=== PATIENT | female | born 1995 | race Caucasian/White ===

== ENCOUNTER → 2020-09-30 14:11 | Outpatient (BNVA) | payer BC, SELFPAY | PROVIDERS: PCP Nurse Practitioner Adult Health; Visit Provider Internal Medicine Gastroenterology ==

== ENCOUNTER 2020-11-23 10:17 | Outpatient (REF) | payer BC, SELFPAY ==
[2020-11-23 12:44] LABS: Alanine Aminotransferase 26 U/L (0-31); Albumin Level 4.4 g/dL (3.5-5.0); Alkaline Phosphatase 93 U/L (39-117); Aspartate Amino Transferase 17 U/L (5-31); Bilirubin Direct < 0.2 mg/dL (0.0-0.5); Bilirubin Total 0.3 mg/dL (0.0-1.0); Total Protein 6.9 g/dL (6.5-8.0)
== END 2020-11-23 10:18 | disposition home or self-care (01) ==
LOC: HO.LAB 10:17
PROVIDERS: Absent Provider Internal Medicine Gastroenterology; PCP Nurse Practitioner Adult Health; Visit Provider Surgery
DX: K80.20 Calculus of gallbladder without cholecystitis without obstruction (principal)
CPT/HCPCS: 36415; 80076

== ENCOUNTER 2021-01-18 10:18 | Outpatient (REF) | payer BC, SELFPAY ==
--- NOTE | ~2021-01-18 | US_ITS ---
EXAMINATION: US ABDOMEN LIMITED CLINICAL INFORMATION: Calculus of gallbladder without cholecystitis. COMPARISON: None TECHNIQUE: Real-time imaging of the right upper quadrant abdominal viscera. FINDINGS: PANCREAS: The head and the body of the pancreas is homogeneous in echotexture. The tail is not visualized. LIVER: Normal. The liver is normal in size. The liver contour is normal. Parenchymal echogenicity is normal. No focal hepatic lesion. There is no intrahepatic biliary duct dilatation seen. GALLBLADDER: The gallbladder is physiologically distended. Multiple impacted mobile gallstones are present. No evidence of gallbladder wall thickening or pericholecystic fluid. COMMON BILE DUCT: Normal in caliber measuring 0.2 cm in diameter. RIGHT KIDNEY: Normal. No hydronephrosis. No renal calculi or focal parenchymal lesions. The kidney measures 11.0 cm in maximum dimension. FREE FLUID: None. US/US abdomen limited IMPRESSION: Multiple impacted gallstones without wall thickening. Visualized liver, pancreas, CBD and right kidney are unremarkable.
== END 2021-01-18 10:19 | disposition home or self-care (01) ==
LOC: HO.US 10:18
PROVIDERS: PCP Nurse Practitioner Adult Health; Visit Provider Surgery
DX: K80.20 Calculus of gallbladder without cholecystitis without obstruction (principal)
CPT/HCPCS: 76705

== ENCOUNTER → 2021-01-25 10:04 | Outpatient (BNVA) | payer BC, SELFPAY | PROVIDERS: PCP Nurse Practitioner Adult Health; Referring Provider Nurse Practitioner Adult Health; Visit Provider Surgery ==

== ENCOUNTER 2022-10-24 10:00 | Outpatient (AMB) | payer BC, SELFPAY ==
--- NOTE | 2022-10-24 10:07 | MHC.OFFVIS ---
Intake Vital Signs 10/24/22 10:12 Weight 243 lb BP 110/66 Blood Pressure Location Rt brachial Position Sitting Pulse 70 Intake Visit Reasons: Discuss gallbladder surgery Intake Note: This patient presents for an assessment to discuss laparoscopic cholecystectomy. Patient c/o; last episode 3 weeks ago, denies nausea or vomiting, denies problems with bowel movements. 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 The pain occurs nearly monthly and she has made multiple visits to the emergency department because of the pain. The most recent episode occurred on 10/04/2022. She reports the pain lasted approximately 4 hours before resolving. She was evaluated at [facility]. Ultrasound confirmed gallstones within the gallbladder. She feels the pain is diet related and seems to increase with fatty food intake. She presents today to discuss cholecystectomy. [facility] Surgical History History of tooth extraction Family History Mother Alcohol abuse Breast CA Social History Household Members: Significant Other Household Members Other:: boyfriends Alcohol intake: never Patient Tobacco Use Status: Former Tobacco user Quit Date: 12/2016 Tobacco use type: Cigarette e-Cigarette/Vaping Use: Currently Using Substance Use Type: Marijuana Review of Systems Const All systems reviewed & are unremarkable except as noted in HPI and below GI Reports as per HPI Physical Exam Vital Signs: Last Vital Signs Pulse 70 10/24/22 10:12 BP 110/66 10/24/22 10:12 Const General: no acute distress and well developed Nutritional Appearance: well nourished Orientation/consciousness: patient oriented x3 Limitations: no limitations Neck Neck: Yes trachea midline, Yes supple and Yes no JVD Resp Effort & Inspection: normal respiratory effort, no audible wheezes, no cough and no tracheal deviation GI Inspection: Yes normal to inspection Palpation (GI): Soft to palpation, Tenderness to palpation present (GI) in the RUQ; Lazo's sign negative, no guarding, not rigid, hepatosplenomegaly present, no hepatomegaly and No Rebound tenderness present Auscultation: normal bowel sounds Rectal Exam - Female: deferred Abdomen image: 1. Area of tenderness deep palpation, no palpable mass, no rebound or guarding Skin General skin exam: no rashes or lesions noted Neuro General: patient oriented x3 Extrem General: Yes no clubbing, cyanosis or edema Assessment & Plan Assessment & Plan (1) Biliary colic: Code(s): K80.50 - Calculus of bile duct without cholangitis or cholecystitis without obstruction Plan 26-year-old female patient with recurring episodes of biliary colic with a known history of gallstones. She reports the episodes are occurring more frequently and becoming more severe. We discussed laparoscopic cholecystectomy as a possible option. After review of the procedure, risks, and alternatives, she consents to a laparoscopic or possible open cholecystectomy. Coding Level of Care Code Est Pt Level 4 (45534) Diagnoses Biliary colic K80.50
[2022-10-24 10:12] VITALS: BP 110/66; PULSE 70
== END 2022-10-24 10:28 | disposition home or self-care (01) ==
PROVIDERS: PCP Nurse Practitioner Adult Health; Visit Provider Surgery
DX: K80.50 Calculus of bile duct without cholangitis or cholecystitis without obstruction (principal)
CPT/HCPCS: 99213

== ENCOUNTER → 2022-10-24 10:00 | Outpatient (BNVA) | payer BC, SELFPAY | PROVIDERS: PCP Nurse Practitioner Adult Health; Visit Provider Surgery ==

== ENCOUNTER 2022-11-13 07:59 | Day surgery (SDC) | payer BC, SELFPAY ==
[2022-11-08 14:19] VITALS: BMI 35.9
--- NOTE | 2022-11-10 09:19 | HO.ANESPROP2 ---
HPI - Anesthesia Eval Consult details Narrative: 26yo F for Cholecystectomy Laparoscopic, poss open PMFSH Active Problems Active Problems: All Active Problems (Updated 11/08/22 @ 14:16 by Arelsi Rosales RN) Depression (Acute) Gallstones (Acute) Anxiety disorder (Acute) Obesity (BMI 35.0-39.9 without comorbidity) (Acute) Tobacco abuse (Acute) Biliary colic (Acute) Past Medical History Medical History Anxiety Depression Family History Family History Mother Alcohol abuse Breast CA Surgical History Surgical History History of tooth extraction Social History Social History Household Members: Significant Other Household Members Other:: boyfriend Alcohol intake: never Patient Tobacco Use Status: Current everyday Tobacco user Tobacco use type: Smokeless Tobacco e-Cigarette/Vaping Use: Currently Using Substance Use Type: Marijuana Meds Allergies Allergy/AdvReac Type Severity Reaction Status Date / Time No Known Allergies Allergy Verified 10/24/22 10:10 Home Medications Medication Instructions Recorded Confirmed Last Taken Type escitalopram oxalate 20 mg tablet 20 mg PO DAILY 09/30/20 11/08/22 Unknown History doxycycline hyclate 100 mg capsule 100 mg PO BID 10/24/22 11/08/22 Unknown History Exam Exam Date and Time: November 10, 2022 0919 Height,Weight and Vital Signs: Height 5 ft 9 in Weight 110.223 kg Assessment and Plan Assessment Anesthesia Assessment: Chart Reviewed
[2022-11-13] VITALS (8 sets, daily range): BP systolic 126–155; BP diastolic 68–92; PULSE 56–76; RESP 14–18; TEMP 36.6–37.1; O2SAT 96–100
--- NOTE | 2022-11-13 08:09 | HO.ANESPROP2 ---
[facility] Active Problems Active Problems: All Active Problems (Updated 11/08/22 @ 14:16 by Arelis Rosales RN) Depression (Acute) Gallstones (Acute) Anxiety disorder (Acute) Obesity (BMI 35.0-39.9 without comorbidity) (Acute) Tobacco abuse (Acute) Biliary colic (Acute) Past Medical History Medical History Anxiety Depression Functional capacity: independent ambulation Patient : No Family History Family History Mother Alcohol abuse Breast CA Family history of problems with anesthesia: No Surgical History Surgical History History of tooth extraction History of Problems with Anesthesia: No Social History Social History Household Members: Significant Other Household Members Other:: boyfriend Alcohol intake: never Patient Tobacco Use Status: Current everyday Tobacco user Tobacco use type: Smokeless Tobacco e-Cigarette/Vaping Use: Currently Using Substance Use Type: Marijuana Meds Allergies Allergy/AdvReac Type Severity Reaction Status Date / Time No Known Allergies Allergy Verified 10/24/22 10:10 Active Medications: Current Medications Albuterol Sulfate (Albuterol Sulfate (0.083%) 2.5 Mg/3 Ml Vial.Neb) 2.5 mg INHALE ONCE PRN PRN Reason: Shortness of Breath/Wheezing Lactated Ringer's (Lr) 1,000 mls @ 100 mls/hr IVCONT .Q10H DUANE Cefotetan Disodium 2 gm/ (Sodium Chloride) 50 mls @ 100 mls/hr IV PREOP ONE Stop: 11/13/22 08:32 Home Medications Medication Instructions Recorded Confirmed Last Taken Type escitalopram oxalate 20 mg tablet 20 mg PO DAILY 09/30/20 11/08/22 Unknown History doxycycline hyclate 100 mg capsule 100 mg PO BID 10/24/22 11/08/22 Unknown History Exam Exam Date and Time: November 13, 2022 0809 Height,Weight and Vital Signs: Height 5 ft 9 in Weight 110.223 kg Airway Mallampati Class: III TM Dist: >3cm Neck ROM: Full Heart: RRR Lungs: CTA Assessment and Plan Assessment Anesthesia Assessment: Anesthesia Plan Discussed, Smoking Cess. Discussed and Chart Reviewed Final Anesthetic Review Family History of Problems with Anesthesia: No History of Problems with Anesthesia: No NPO: Yes ASA Class: III Final Preanesthetic Review: Meds/Allgs Chart Reviewed, Consent Obtained/Reviewed and Anes Risks/Benef Reviewed Patient Risk: Intermediate Procedure Risk: Intermediate Anesthetic Plan Anesthetic Plan: GA Disposition: Standard PACU
[2022-11-13 08:22] LABS: UPreg QC Valid YES; Urine Pregnancy NEGATIVE (NEGATIVE)
[2022-11-13] MEDS: Lactated Ringers 1,000 ML 100 ML IVCONT (08:25)
--- NOTE | 2022-11-13 09:02 | MHC.SHP ---
Pre-Procedural Eval Section A Date of Service: 11/13/22 The patient is an INPATIENT: No Changes since office visit: Yes Patient answered all questions; No Cold of Flu in the past 2 weeks, No New Medical Problems and No Changes in Medication The History & Physical has been completed within 30 days and I have reviewed it.: Yes Section B Chief Complaint: Calculus of bile duct without cholangitis or peri Allergies: Allergies Allergy/AdvReac Type Severity Reaction Status Date / Time No Known Allergies Allergy Verified 10/24/22 10:10 Plan Diagnosis/Plan: Unchanged I have reviewed the history and physical and performed a pertinent physical examination on my patient. No changes have occurred unless specified. Time Spent With Patient Time: Total time managing care of this patient today ____ minutes.
--- NOTE | 2022-11-13 09:38 | P.OP_ITS ---
Operative Note Operative Note Date of Service: 11/13/22 Narrative: Preoperative diagnosis: Biliary colic Postoperative diagnosis: Same Procedure: Laparoscopic cholecystectomy Surgeon: Tariq Willett MD Jumpbasting Armhole Baster: ROX Taylor Anesthesia: General endotracheal Indications for procedure: 26-year-old female patient presenting with complaints of epigastric and right upper quadrant abdominal pain found to have gallstones in the gallbladder. Symptoms have been increasing in severity and she presents today for laparoscopic cholecystectomy. Operative findings: Chronically inflamed gallbladder with multiple gallstones (21). Specimen: gallbladder Estimated blood loss: 5 mL Complications: None Procedure details: Patient was brought to the OR and placed in a supine position. After administering general anesthesia the patient's abdomen was prepped with ChloraPrep and draped in a sterile fashion. Local anesthesia consisting of 0.75% Sensorcaine without epinephrine was infiltrated in a periumbilical region. A 5 mm incision was made above the umbilicus in a transverse fashion. The Veress needle was then inserted while elevating abdominal cavity with towel clips. After positive drop test the abdomen was insufflated to a pressure of 15 mm of mercury. The Veress needle was then removed and a 5 mm trocar inserted. The camera was inserted in the abdomen explored. A 12 mm trocar was then placed in the epigastrium. Two 5 mm trocars placed in the right upper quadrant by the addictions counselor assistant. The patient was placed in reverse Trendelenburg positioning and rotated to the left. The gallbladder was grasped with the fundus and retracted cephalad by the addictions counselor assistant. The infundibulum was then grasped and retracted away from the liver bed, also by the addictions counselor assistant. The Dolphin dissected was then used by the surgeon to dissect the peritoneum off the infundibulum to reveal the junction with the cystic duct. Cystic artery was noted slightly medial and posterior to the cystic duct. After obtaining a critical view the cystic duct was doubly clipped and divided. The cystic artery was then doubly clipped and divided. The gallbladder was then dissected off the liver bed using electrocautery with an L hook. Hemostasis was assured all times using the electrocautery. When the gallbladder is completely dissected off the liver bed was placed in an Endo-Catch bag and brought out through the epigastric incision. The gallbladder was sent to pathology for further examination. The abdomen was then re-examined. The liver bed was irrigated and suctioned dry. No bleeding or bile leak could be identified. CO2 was then evacuated and all trocars removed. Fascia was closed at the epigastric incision using a [id number] 0 Polysorb suture. Skin was closed in all incisions using a subcuticular 4 0 Polysorb suture by both the surgeon and addictions counselor assistant. Sterile dressings consisting of Steri-Strips, 2 x 2 gauze, and Tegaderm were then applied. The patient tolerated the procedure well. Sponge instrument and needle counts reported as correct. The patient was transferred to PACU in stable condition.
[2022-11-13] MEDS: ondansetron HCL 4 MG/2 ML VIAL IVPUSH (11:15)
[2022-11-13] MEDS: Acetaminophen 1,000 MG/100 ML PIGGYBACK 400 MG IV (11:34)
== END 2022-11-13 12:37 | disposition home or self-care (01) ==
PROVIDERS: Nurse Practitioner; Visit Provider Surgery
PROC: 0FT44ZZ Resection of Gallbladder, Percutaneous Endoscopic Approach (ICD-10-PCS; CPT 47562; principal; 2022-11-13 09:40)
DX: K80.10 Calculus of gallbladder with chronic cholecystitis without obstruction (principal); F32.A Depression, unspecified; F41.1 Generalized anxiety disorder; F17.290 Nicotine dependence, other tobacco product, uncomplicated; E66.9 Obesity, unspecified; Z79.899 Other long term (current) drug therapy; F12.90 Cannabis use, unspecified, uncomplicated
CPT/HCPCS: 47562; 81025; 88304; J0131; J1100; J2250; J2405; J3010

== ENCOUNTER → 2022-11-13 07:59 | Outpatient (BNV) | payer BC, SELFPAY | PROVIDERS: Visit Provider Surgery | DX: K80.50 Calculus of bile duct without cholangitis or cholecystitis without obstruction (principal) | CPT/HCPCS: 47562 ==

== ENCOUNTER 2022-12-01 11:35 | Outpatient (AMB) | payer BC, SELFPAY ==
--- NOTE | 2022-12-01 11:41 | A.OFFVIS_ITS ---
Intake Vital Signs 12/01/22 11:45 Height 59 ft Weight 243 lb 6 oz BMI 0.3 BP 130/80 Blood Pressure Location Lt brachial Position Sitting Intake Visit Reasons: S/P lap peri Intake Note: Patient is seen in office for post op assessment post laparsocopic cholecyst ectomy. 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 She reports feeling much improved today with lower back pain, nausea or vomiting. Many for previous symptoms have now resolved. She denies any problems with the incision and denies fever, chills, diarrhea or constipation. [facility] Medical History Anxiety Depression Surgical History History of tooth extraction Hx laparoscopic cholecystectomy (11/13/22) Family History Mother Alcohol abuse Breast CA Social History Household Members: Significant Other Household Members Other:: boyfriend Alcohol intake: never Patient Tobacco Use Status: Current everyday Tobacco user Tobacco use type: Smokeless Tobacco e-Cigarette/Vaping Use: Currently Using Substance Use Type: Marijuana Physical Exam Vital Signs: Last Vital Signs BP 130/80 12/01/22 11:45 BMI result Body Mass Index 0.3 Const General: no acute distress Resp Effort & Inspection: normal respiratory effort GI Other: Well-healed trocar incisions without redness or discharge. Inspection: Yes normal to inspection Palpation (GI): Soft to palpation, nontender, no guarding and not rigid Extrem General: No edema Assessment & Plan Assessment & Plan (1) Biliary colic: Code(s): K80.50 - Calculus of bile duct without cholangitis or cholecystitis without obstruction Plan Patient returns 2 weeks following laparoscopic cholecystectomy for biliary colic. She tolerated the procedure well and her incisions are healing nicely. She reports feeling much improved with no further abdominal pain or back pain. She may resume normal activity without restrictions and should follow up as needed. Coding Level of Care Code Global (22716) Diagnoses Biliary colic K80.50
[2022-12-01 11:45] VITALS: BP 130/80
== END 2022-12-01 11:48 | disposition home or self-care (01) ==
PROVIDERS: PCP Nurse Practitioner Adult Health; Visit Provider Surgery
DX: K80.50 Calculus of bile duct without cholangitis or cholecystitis without obstruction (principal)
CPT/HCPCS: 99024

== ENCOUNTER → 2022-12-01 11:35 | Outpatient (BNVA) | payer BC, SELFPAY | PROVIDERS: PCP Nurse Practitioner Adult Health; Visit Provider Surgery ==